=== PATIENT | female | born 1980 | race Hispanic/Latino ===

== ENCOUNTER 2023-03-21 16:26 | Emergency (ER) | payer SELFPAY ==
[2023-03-21] MEDS ORDERED: HYDROCODONE/APAP 5/325 MG TAB ONE (17:08)
[2023-03-21] MEDS ORDERED: DOXYCYCLINE 100 MG CAP PO ONE (17:08)
[2023-03-21] MEDS ORDERED: TETANUS & DIPHTHERIA TOX,ADULT 0.5 ML VIAL ONE (17:09)
--- NOTE | 2023-03-21 17:27 | RAD REPORT ---
EXAM DESCRIPTION: RAD - Foot Right 3 View - 03/21/2023 5:20 pm CLINICAL HISTORY: stingray, r/o fb COMPARISON: No comparisons> TECHNIQUE: Right foot, 3 views. FINDINGS: No fracture, dislocation or periosteal reaction. No air or foreign body in the soft tissues. IMPRESSION: Negative right foot examination.
--- NOTE | 2023-03-21 17:33 | ER ---
Nurse's Notes [facility] Name: Jackie Lin Age: 42 yrs Sex: Female : 1980 Arrival Date: 03/21/2023 Time: 16:26 Bed 6 Private MD: Diagnosis: Puncture wound without foreign body, right foot Presentation: 03/21 16:43 Chief complaint: Stung by stingray on top of right foot. Coronavirus screen: At this hb time, the client does not indicate any symptoms associated with coronavirus-19. Ebola Screen: No symptoms or risks identified at this time. Initial Sepsis Screen: Does the patient meet any 2 criteria? No. Patient's initial sepsis screen is negative. Does the patient have a suspected source of infection? No. Patient's initial sepsis screen is negative. Risk Assessment: Do you want to hurt yourself or someone else? Patient reports no desire to harm self or others. Onset of symptoms was March 21, 2023. 16:43 Method Of Arrival: Ambulatory hb 16:43 Acuity: EMILY 3 hb Historical: - Allergies: 16:44 No Known Allergies; hb - Home Meds: 16:44 None [Active]; hb - PMHx: 16:44 None; hb - PSHx: 16:44 section; hb - Immunization history:: Adult Immunizations unknown. - Social history:: Smoking status: unknown. Screenin:13 [facility] ED Fall Risk Assessment (Adult) History of falling in the last 3 months, ph including since admission No falls in past 3 months (0 pts) Confusion or Disorientation No (0 pts) Intoxicated or Sedated No (0 pts) Impaired Gait No (0 pts) Mobility Assist Device Used No (0 pt) Altered Elimination No (0 pt) Score/Fall Risk Level 0 - 2 = Low Risk Oriented to surroundings, Maintained a safe environment, Hourly rounding (assess needs \T\ fall precautionary measures) done. Abuse screen: Denies threats or abuse. Has been threatened or abused. Nutritional screening: No deficits noted. Tuberculosis screening: No symptoms or risk factors identified. Assessment: 17:11 General: Appears in no apparent distress. Behavior is calm, cooperative, appropriate ph for age. Pain: Complains of pain in dorsum of right foot. Neuro: Level of Consciousness is awake, alert, obeys commands, Oriented to person, place, time, situation. Cardiovascular: Capillary refill < 3 seconds in bilateral fingers toes Patient's skin is warm and dry. Respiratory: No deficits noted. Derm: Skin is pink, warm \T\ dry. Musculoskeletal: Swelling present in dorsum of right foot. Vital Signs: 16:43 BP 150 / 91; Pulse 75; Resp 16; Pulse Ox 98% on R/A; Pain 10/10; hb 16:43 Pain Scale: Adult hb ED Course: 16:27 Patient arrived in ED. ts1 16:28 Jan[facility] Currie F[facility]-C [facility]. snw 16:28 Maximino Mayen MD is Attending Physician. snw 16:44 Triage completed. hb 16:44 Nancy Santillan, RN is Primary Nurse. ph 16:44 Arm band placed on. hb 16:44 Patient has correct armband on for positive identification. Bed in low position. Call mm9 light in reach. Side rails up X 1. Adult w/ patient. Pulse ox on. NIBP on. 16:51 FOOT IN WARM WATER. mm9 17:14 No provider procedures requiring assistance completed. Patient did not have IV access ph during this emergency room visit. 17:22 Foot Right 3 View XRAY In Process Unspecified. EDMS Administered Medications: 17:08 Drug: Boostrix Tdap IM 0.5 ml Route: IM; Site: left deltoid; ph 17:08 Drug: Doxycycline PO 100 mg Route: PO; ph 17:08 Drug: HYDROcodone-acetaminophen PO 5 mg-325 mg 1 tabs Route: PO; ph Medication: 17:12 Vaccine Information Statement (VIS) provided today. Questions and/or concerns ph addressed. VIS edition date: April 26, 2021. Outcome: 17:33 Discharge ordered by . snw 17:51 Patient left the ED. Signatures: Dispatcher [employer] EDMS Jania Currie FNP-C BUSINESS MACHINE OPERATOR-Csnw Nancy Santillan RN RN ph Baxter, Heather, RN RN hb Martinez, Maria mm9 Keke Aragon PAS PAS ts1
--- NOTE | 2023-03-21 17:34 | EDPHYS ---
Physician Documentation [facility] Name: Jackie Lin Age: 42 yrs Sex: Female : 1980 Arrival Date: 03/21/2023 Time: 16:26 Bed 6 Private MD: ED Physician Maximino Mayen HPI: 03/21 16:43 This 42 yrs old Female presents to ER via Unassigned with complaints of Bit by stingray.snw 16:43 Onset: The symptoms/episode began/occurred acutely. Associated signs and symptoms: snw Pertinent positives: painful injury. The patient has not experienced similar symptoms in the past. The patient has not recently seen a physician. Historical: - Allergies: 16:44 No Known Allergies; hb - Home Meds: 16:44 None [Active]; hb - PMHx: 16:44 None; hb - PSHx: 16:44 section; hb - Immunization history:: Adult Immunizations unknown. - Social history:: Smoking status: unknown. ROS: 16:42 Constitutional: Negative for fever, chills, and weight loss, Eyes: Negative for injury, snw pain, redness, and discharge, ENT: Negative for injury, pain, and discharge, Neck: Negative for injury, pain, and swelling, Cardiovascular: Negative for chest pain, palpitations, and edema, Respiratory: Negative for shortness of breath, cough, wheezing, and pleuritic chest pain, Abdomen/GI: Negative for abdominal pain, nausea, vomiting, diarrhea, and constipation, Back: Negative for injury and pain, : Negative for injury, bleeding, discharge, and swelling, MS/Extremity: Negative for injury and deformity, Neuro: Negative for headache, weakness, numbness, tingling, and seizure, Psych: Negative for depression, anxiety, suicide ideation, homicidal ideation, and hallucinations. 16:42 Skin: Positive for puncture, of the dorsum of right foot. Exam: 16:42 Constitutional: This is a well developed, well nourished patient who is awake, alert, snw and in no acute distress. Head/Face: Normocephalic, atraumatic. Eyes: Pupils equal round and reactive to light, extra-ocular motions intact. Lids and lashes normal. Conjunctiva and sclera are non-icteric and not injected. Cornea within normal limits. Periorbital areas with no swelling, redness, or edema. ENT: Nares patent. No nasal discharge, no septal abnormalities noted. Tympanic membranes are normal and external auditory canals are clear. Oropharynx with no redness, swelling, or masses, exudates, or evidence of obstruction, uvula midline. Mucous membranes moist. Neck: Trachea midline, no thyromegaly or masses palpated, and no cervical lymphadenopathy. Supple, full range of motion without nuchal rigidity, or vertebral point tenderness. No Meningismus. Chest/axilla: Normal chest wall appearance and motion. Nontender with no deformity. No lesions are appreciated. Cardiovascular: Regular rate and rhythm with a normal S1 and S2. No gallops, murmurs, or rubs. Normal PMI, no JVD. No pulse deficits. Respiratory: Lungs have equal breath sounds bilaterally, clear to auscultation and percussion. No rales, rhonchi or wheezes noted. No increased work of breathing, no retractions or nasal flaring. Abdomen/GI: Soft, non-tender, with normal bowel sounds. No distension or tympany. No guarding or rebound. No evidence of tenderness throughout. Back: No spinal tenderness. No costovertebral tenderness. Full range of motion. MS/ Extremity: Pulses equal, no cyanosis. Neurovascular intact. Full, normal range of motion. Neuro: Awake and alert, GCS 15, oriented to person, place, time, and situation. Cranial nerves II-XII grossly intact. Motor strength 5/5 in all extremities. Sensory grossly intact. Cerebellar exam normal. Normal gait. Psych: Awake, alert, with orientation to person, place and time. Behavior, mood, and affect are within normal limits. 16:42 Skin: Appearance: normal except for affected area, injury, puncture(s), that are deep, of the dorsum of right foot. Vital Signs: 16:43 BP 150 / 91; Pulse 75; Resp 16; Pulse Ox 98% on R/A; Pain 10/10; hb 16:43 Pain Scale: Adult hb MDM: 16:28 Patient medically screened. snw 17:30 Differential diagnosis: foreign body, cellulitis. Data reviewed: vital signs, nurses snw notes, radiologic studies, plain films. Counseling: I had a detailed discussion with the patient and/or guardian regarding: the historical points, exam findings, and any diagnostic results supporting the discharge/admit diagnosis, radiology results, the need for outpatient follow up, for definitive care. Special discussion: Based on the history and exam findings, there is no indication for further emergent testing or inpatient evaluation. I discussed with the patient/guardian the need to see the primary care provider for further evaluation of the symptoms. 03/21 16:42 Order name: Foot Right 3 View XRAY; Complete Time: 17:30 snw 03/21 16:42 Order name: Misc. Order: hot water bath; Complete Time: 16:45 snw Administered Medications: 17:08 Drug: Boostrix Tdap IM 0.5 ml Route: IM; Site: left deltoid; ph 17:08 Drug: Doxycycline PO 100 mg Route: PO; ph 17:08 Drug: HYDROcodone-acetaminophen PO 5 mg-325 mg 1 tabs Route: PO; ph Disposition: 18:26 Co-signature as Attending Physician, Maximino Mayen MD I reviewed the patient's care rn provided by the Advanced Practice Provider and agree with the diagnosis and treatment plan. Disposition Summary: 03/21/23 17:33 Discharge Ordered Location: Home snw Condition: Stable snw Diagnosis - Puncture wound without foreign body, right foot snw Followup: snw - With: Emergency Department - When: As needed - Reason: Worsening of condition Followup: snw - With: Private Physician - When: 2 - 3 days - Reason: Recheck today's complaints, Continuance of care, Re-evaluation by your physician Discharge Instructions: - Discharge Summary Sheet snw - [employer] Injury snw - Puncture Wound snw - Wound Infection snw Forms: - Work release form snw - Medication Reconciliation Form snw - Thank You Letter snw - Antibiotic Education snw - Prescription Opioid Use snw - [email or web address] snw Prescriptions: - Doxycycline Hyclate 100 mg Oral Tablet - take 1 tablet by ORAL route every 12 hours; 20 tablet; Refills: 0, Product snw Selection Permitted - Tramadol 50 mg Oral Tablet - take 1 tablet by ORAL route every 8 hours as needed; 12 tablet; Refills: 0, snw Product Selection Permitted Signatures: Dispatcher [facility] Jania Decker, [place]-C BOOT AND SHOE REPAIRMAN-Csnw Maximino Mayen MD MD rn Hall, Patricia, RN RN ph Lupe Finley, RN RN hb
[2023-03-21 18:00] VITALS: BP 150/91; O2SAT 98
== END 2023-03-21 17:51 | disposition home or self-care (01) ==
LOC: ER 16:26
DX: S91.331A Puncture wound without foreign body, right foot, initial encounter (principal)
CPT/HCPCS: 90714; 96372; 99284